=== PATIENT | male | born 1975 | race Caucasian/White ===

== ENCOUNTER 2019-12-11 05:57 | Emergency (ER) | payer MEDICARE, SELFPAY ==
--- NOTE | ~2019-12-11 | XR_ITS ---
EXAMINATION: XR shoulder LT min 2V INDICATION: Left shoulder pain TECHNIQUE: Four views of the left shoulder are submitted. COMPARISON: None FINDINGS: Normal alignment. No fracture. The glenohumeral joint space is normal. There are 10 mm of s eparation at the acromioclavicular joint. Soft tissues are unremarkable. A dual-lead pacemaker of the left chest wall projects over the scapula on some views. IMPRESSION: 1. Mild separation at the acromioclavicular joint. Reviewed, dictated and finalized at location A.
[2019-12-11 05:52] VITALS: BP 120/81; PULSE 97; RESP 17; TEMP 36.6; O2SAT 100
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
[2019-12-11 07:16] VITALS: BP 119/83; PULSE 89; RESP 12; O2SAT 97
== END 2019-12-11 07:40 | disposition home or self-care (01) ==
PROVIDERS: Emergency Provider Emergency Medicine
DX: M25.512 Pain in left shoulder (principal); S40.812A Abrasion of left upper arm, initial encounter; Z79.82 Long term (current) use of aspirin; V48.5XXA Car driver injured in noncollision transport accident in traffic accident, initial encounter
CPT/HCPCS: 73030; 99283

== ENCOUNTER 2023-03-27 08:47 | Emergency (ER) | payer MEDICARE, SELFPAY ==
[2023-03-27 09:00] VITALS: BP 122/83; PULSE 66; RESP 20; TEMP 36.8; O2SAT 95
--- NOTE | 2023-03-27 09:15 | ED.GENADULT ---
HPI - General Adult General Chief complaint: Upper Respiratory Infection Stated complaint: Sore Throat/Cough Source: patient Mode of arrival: ambulatory Limitations: no limitations History of Present Illness HPI narrative: Patient presents for evaluation of sick symptoms for the last 3 days. He indicates he was doing yard work just prior to the time of symptom onset. He states he felt off . He now has a sore throat, productive cough of green sputum, sinus congestion, nausea and rhinorrhea. No fever, chills, vomiting or diarrhea. He smokes marijuana but not cigarettes. He has been taking cough drops for his symptoms which seems to help. His father is being evaluated here for sick symptoms. Related Data Home Medications Medication Instructions Recorded Confirmed aspirin 81 mg tablet,delayed 81 mg PO HS 12/11/19 release (Adult Low Dose Aspirin) atorvastatin 80 mg tablet 80 mg PO HS 12/11/19 carvedilol 12.5 mg tablet 12.5 mg PO BID 12/11/19 clopidogrel 75 mg tablet 75 mg PO DAILY 12/11/19 furosemide 40 mg tablet 40 mg PO DAILY 12/11/19 isosorbide mononitrate 60 mg 60 mg PO DAILY 12/11/19 tablet,extended release 24 hr lisinopril 40 mg tablet 40 mg PO HS 12/11/19 nitroglycerin 0.4 mg sublingual 0.4 mg sublingual Q5M PRN Chest 12/11/19 tablet Pain Allergies Allergy/AdvReac Type Severity Reaction Status Date / Time codeine AdvReac Gastrointestinal Verified 12/11/19 06:05 Upset Review of Systems Review of Systems: CONSTITUTIONAL: Denies fever, chills, or sweats. EYES: Denies visual changes, redness, or discharge. ENT: Reports sore throat, sinus congestion and clear rhinorrhea. Denies otalgia. CARDIOVASCULAR: Denies chest pain, palpitations, or edema. RESPIRATORY: Reports productive cough of green sputum. Denies shortness of breath. GASTROINTESTINAL: Denies abdominal pain, nausea, vomiting, or diarrhea. GENITOURINARY: Denies dysuria or hematuria. SKIN: Denies rash or itching. MUSCULOSKELETAL: Denies back pain, joint pain, or myalgia. NEUROLOGIC: Denies headache, numbness, dizziness, or weakness. PSYCHIATRIC: Denies anxiety or depression. [facility] Past Medical History Medical History Hyperlipidemia Hypertension Surgical History Surgical History History of cardiac defibrillator placement Family History Family History Father DVT (deep venous thrombosis) Social History Social History Substance use: current Substance use type: marijuana Living arrangements: with family Gender identity (if verbalized by the patient): Male Spiritual care concerns: No Exam Narrative: GENERAL: Well-appearing, well-nourished, and in no acute distress. HEAD: Normocephalic, atraumatic. EYES: PERRLA and EOMI. ENT: Nares clear, no rhinorrhea or epistaxis. Mucous membranes moist. Oropharynx without tonsillar hypertrophy exudate or other lesions. Bilateral TMs pearly fung nonbulging NECK: Supple. No adenopathy or masses. No carotid bruits or JVD CHEST: Clear to auscultation. No respiratory distress. No wheezes rales or rhonchi HEART: Regular rate and rhythm. No murmur heard. Normal peripheral pulses. ABDOMEN: Soft, nontender, nondistended, normal active bowel sounds. EXTREMITIES: Normal range of motion. No edema. SKIN: Warm, dry, no rash. NEURO: No focal deficits. Alert and oriented x3. PSYCH: Normal mood and affect. Course Course Emergency Course: This is a 47-year-old male who presented for evaluation of sick symptoms. Rapid strep positive. Will treat with amoxicillin. Increase hydration. [id number] agents for symptom management. Follow up with primary provider. Go to the ER for worsening symptoms. Patient in agreement with plan of care
== END 2023-03-27 09:41 | disposition home or self-care (01) ==
PROVIDERS: Emergency Provider Nurse Practitioner
DX: J02.0 Streptococcal pharyngitis (principal); E78.5 Hyperlipidemia, unspecified; I10 Essential (primary) hypertension; Z20.822 Contact with and (suspected) exposure to COVID-19
CPT/HCPCS: 87426; 87804; 87880; 99213; C9803; G0463